=== PATIENT | female | born 1955 | race Caucasian/White ===

== ENCOUNTER 2018-07-09 10:15 | Inpatient (IN) | payer OTHER ==
--- NOTE | 2018-07-13 02:56 | HP ---
DATE OF PLANNED PROCEDURE: 07/13/2018 PROCEDURE TO BE PERFORMED: Robotic-assisted total laparoscopic hysterectomy with bilateral salpingectomy. PREOPERATIVE DIAGNOSIS: Postmenopausal bleeding and 8 cm pelvic mass. HISTORY OF PRESENT ILLNESS: Ms. Kritsie Somers is a 62-year-old G0 with history of menopause at approximately age 49, presented to my office in May with complaints of new-onset postmenopausal bleeding. The patient gives a history of bleeding that started 05/05 05/03 through 05/07 that she described as a period. The patient reports that the bleeding stopped spontaneously, but that she had a second week of bleeding at the end of April. The patient denied any pelvic pain, vaginal discharge or other associated findings. In her evaluation in the office, she was noted to have endometrial stripe of 19 mm and pelvic mass that appeared to be 7-9 cm. On examination, the cervical os was noted to be stenotic and an endometrial biopsy was not able to be completed in the office. The patient's workup for the pelvic mass including a CT of the abdomen and pelvis described a 7-cm mixed density pelvic mass most compatible with a dermoid. I counseled the patient on recommendation for an Oncology referral versus a dilation and curettage to rule out malignancy or hyperplasia of the endometrium. The patient declined Oncology referral and requested hysterectomy with bilateral salpingo-oophorectomy with me at [facility]. The patient and I had a long discussion of the risks and benefits of deferring Oncology referral. She is aware that if an endometrial malignancy diagnosed during or after the time of her procedure with me that future medical and/or surgical management will be required an outside facility. The patient also understands that there is not a REPORT ANALYST fire support specialist available during her procedure if malignancy was suspected at the time of surgery. Since her visit in May, patient declines any bleeding since. She remains asymptomatic to the pelvic mass and has no other associated symptoms. PAST MEDICAL HISTORY: Obesity, depression, hypertension. PAST SURGICAL HISTORY: Appendectomy and lap band. OBSTETRICAL HISTORY: 0. GYNECOLOGIC HISTORY: Menopause approximately at age 49. No history of abnormal Pap smear. Most recent Pap smear in 06/2015 negative for intraepithelial lesion or malignancy with negative HPV. CURRENT MEDICATIONS: Losartan 100 mg, hydrochlorothiazide 25 mg, sertraline 100 mg 2 tablets daily, aspirin, fish oil, calcium, multivitamin. SOCIAL HISTORY: . Does not use alcohol, tobacco or drugs. DRUG ALLERGIES: PENICILLIN and SULFA DRUGS. No latex allergies. FAMILY HISTORY: Significant for hypertension, diabetes, hypercholesterolemia, and skin cancer. REVIEW OF SYSTEMS: Negative except per HPI. PHYSICAL EXAMINATION: VITAL SIGNS: Height 5 feet 2 inches, weight 253 pounds, BMI 46, blood pressure 120/76, pulse 68, respiration rate 18, O2 saturation 98%. GENERAL: No acute distress. Alert and oriented. HEENT: Grossly normal. CONSTITUTIONAL: Obese. No acute distress. LUNGS: Nonlabored breathing. Clear to auscultation bilaterally. ABDOMEN: Obese, nontender, nondistended, no masses appreciated; however, exam limited by body habitus. GENITOURINARY: No external lesions, no vaginal lesions. Vaginal mucosa is moist. No cervical discharge, no cervical lesions. Uterus is not enlarged and nontender. Adnexa: No tenderness. Exam is limited by body habitus. Bladder and urethra appear normal. Rectum, no perianal skin lesions, fissures or masses noted. SKIN: No rashes. MENTAL STATUS: Appropriate mood and affect. ASSESSMENT AND PLAN: Ms. 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 The management options have been discussed with the patient in detail including repeat trial of in-office endometrial sampling dilation and curettage with hysteroscopy with IV sedation at the hospital. Referral to REPORT ANALYST Oncology for the above versus total laparoscopic hysterectomy and bilateral salpingo-oophorectomy has been encouraged, however the patient declines. The patient understands the risk and benefits of these different management options , she has decided to schedule a robotic-assisted total laparoscopic hysterectomy with bilateral salpingectomy secondary to the pelvic mass and postmenopausal bleeding. She understands the risks are to include, but not limited to bleeding, infection, damage to intraabdominal pelvic organs, possible need for blood or blood products, infection, bleeding, blood clots to the legs or lungs. Other risks that are inherent anesthesia, inability to fully diagnose and treat all conditions at the time of surgery and possible need for future medical and/or surgical management. Specifically, the patient understands but has declined referral to REPORT ANALYST Oncology for preoperative evaluation and for a second opinion and has also declined a diagnostic dilation and curettage, patient desires to proceed with the procedure as listed above. CLAYTOND
[2018-07-13] MEDS ORDERED: CeleCOXIB 100 MG CAP ONE (06:42)
[2018-07-13] MEDS ORDERED: Famotidine/PF 20 mg/2ml Vial ONE (06:42)
[2018-07-13] MEDS ORDERED: Gabapentin 300 MG CAP ONE (06:42)
[2018-07-13] MEDS ORDERED: Bupivacaine HCl 0.5%/Epinephrine 1:200,000/PF 30 ml Vial ONE (06:57)
[2018-07-13] MEDS ORDERED: Fentanyl 250 MCG/5 ML VIAL ONE (06:58)
[2018-07-13] MEDS ORDERED: Midazolam HCl 2 mg/2 ml Vial ONE (07:17)
[2018-07-13 07:29] LABS: Anion Gap 16 mmol/L (10-20); BUN (Urea Nitrogen) 20 mg/dL (9.8-20.1); Calc. Creatinine Clearance 0 mL/min (70-130); Calcium 8.9 mg/dL (7.8-10.44); Carbon Dioxide 24 mmol/L (23-31); Chloride 105 mmol/L (98-107); Estimated GFR-MDRD 79; Glucose 82 mg/dL (80-115); Potassium 4.6 mmol/L (3.5-5.1); Sodium 140 mmol/L (136-145)
[2018-07-13] MEDS ORDERED: Levofloxacin 500 mg/D5W 100 ml Premix Bag ONE ×2 (07:33→12:26)
[2018-07-13] MEDS ORDERED: Clindamycin/D5W 900 mg/50 ml Premix Bag ONE ×2 (07:33→12:26)
--- NOTE | 2018-07-13 09:44 | EKG ---
Test Reason : PREOP Blood Pressure : / mmHG Vent. Rate : 065 BPM Atrial Rate : 065 BPM P-R Int : 184 ms QRS Dur : 076 ms QT Int : 390 ms P-R-T Axes : 032 -02 003 degrees QTc Int : 405 ms Normal sinus rhythm Possible Inferior infarct , age undetermined (Q's in III and aVF) Abnormal ECG No previous ECGs available Confirmed by RASTA BOLES ([id number]) on 07/13/2018 9:43:32 AM Referred By: ALVIN Confirmed By:RASTA BOLES
[2018-07-13] MEDS ORDERED: Ondansetron HCl/PF 4 MG/2 ML Vial IVP PRN ×2 (10:11→14:55)
[2018-07-13] MEDS ORDERED: Promethazine HCl 25 MG/ML VIAL IM PRN ×2 (10:11→14:55)
[2018-07-13] MEDS ORDERED: Promethazine HCl 25 MG/ML VIAL SLOW IVP PRN (10:11)
--- NOTE | 2018-07-13 13:18 | PDOC.OP ---
Operative Note - Operative Note Operative Note: Immediate post op note Preop Dx: post menopausal bleeding, pelvic mass, dermoid suspected, morbid obesity Postop Dx: menopausal bleeding, pelvic mass, dermoid suspected, morbid obesity, pelvic adhesions Procedure: RA TLH w BSO, lysis of adhesions, cystotomy repair with cysto and interposition of omentum, minilaparotomy to retrieve pelvic mass, TREVER drain placement Surgeon: Lencho Assist: Guillermo Intraoperative consult: Giancarlo EBL: 75ml Complications: incidental cystotomy, repaired during the case Findings: 1. Morbid Obesity 2. Normal appearing uterus that sounds to 8cm 3. Adhesions of omentum to anterior abdominal wall, uterus and pelvic mass 4. Adhesions of pelvic mass/dermoid tumor to uterus, right pelvic sidewall and bladder 5. 2m cystotomy->repaired with no leak on backfill test 6. Normal liver edge Intraoperative 2nd dose of antibiotics ordered for obesity and increased operative time To 3rd floor for post operative care. Will plan for prophylactic Lovenox tomorrow 24hrs post op.
[2018-07-13] MEDS ORDERED: Simethicone Chewable 80 MG TAB PO PRN (14:55)
[2018-07-13] MEDS ORDERED: Meperidine HCl/PF 25 MG/ML VIAL SLOW IVP PRN (14:55)
[2018-07-13] MEDS ORDERED: Bisacodyl 10 MG SUPP PR PRN (14:55)
[2018-07-13] MEDS ORDERED: Acetaminophen/Codeine 30-300mg Tablet PO PRN ×2 (14:55)
[2018-07-13] MEDS ORDERED: Zolpidem Tartrate 5 MG TAB PO PRN (14:55)
[2018-07-13] MEDS ORDERED: diphenhydrAMINE 25 MG CAP PO PRN (14:55)
[2018-07-13 14:58] VITALS: BMI 45.8
[2018-07-13] MEDS: Sodium Chloride 0.9% 1,000 ML IV SCH ×2 (15:17→22:40)
[2018-07-13] MEDS ORDERED: Dexamethasone 20 MG/5 ML VIAL ONE (17:02)
[2018-07-13] MEDS ORDERED: PROPOFOL 200 MG/20 ML VIAL ONE (17:02)
[2018-07-13] MEDS ORDERED: Lidocaine 1% PF 5 ML VIAL ONE (17:02)
[2018-07-13] MEDS ORDERED: Ondansetron HCl/PF 4 MG/2 ML Vial ONE (17:02)
[2018-07-13] MEDS: Ketorolac Tromethamine 30 MG/ML VIAL IVP SCH (17:27)
--- NOTE | 2018-07-13 19:47 | OP ---
DATE OF PROCEDURE: 07/13/2018 PREOPERATIVE DIAGNOSES: 1. Postmenopausal bleeding and pelvic mass, declines referral to Oncology, desires surgical manageme nt with Benign Gynecology. 2. Obesity. POSTOPERATIVE DIAGNOSES: 1. Postmenopausal bleeding and pelvic mass, declines referral to Oncology, desires surgical manageme nt with Benign Gynecology. 2. Obesity. PROCEDURE PERFORMED: 1. Robotic-assisted total laparoscopic hysterectomy with bilateral salpingectomy, lysis of adhesions , incidental cystotomy with cystotomy repair, cystoscopy after cystotomy repair and interposition of omentum to cystotomy repair. 2. Placement of TREVER drain. 3. Mini laparotomy for retrieval of pelvic mass. SURGEON: Denver Musa D.O. CALL CENTER RN: Yudi Li M.D. INTRAOPERATIVE CONSULT: Urbano Mondragon M.D. COMPLICATIONS: Incidental cystotomy secondary to adhesive disease, repaired. ESTIMATED BLOOD LOSS: 75 mL FINDINGS: 1. Morbid obesity. 2. Normal-appearing uterus. 3. A 7-8 cm dermoid appearing left ovary noted to be torsed at the fallopian tube. 4. Adhesions of the omentum to the anterior abdominal wall, uterus and pelvic mass. 5. Adhesions of the pelvic mass to the uterus, right pelvic sidewall and bladder. 6. A 2 cm cystotomy repaired by Dr. Mondragon. 7. Surgical sites hemostatic. INDICATIONS: Ms. Kristie Somers is a 62-year-old female who presented to my office with postmenopausa l bleeding. We were unable to obtain an endometrial sample in the office due to stenosis of the cerv ix. She was also noted to have a pelvic mass on ultrasound, which on CT scan appeared to be a dermoi d appearing ovarian tumor. The patient was counseled on her surgical options and declined endometria l sampling in the OR with a D and C as well as referral to ROUTE DELIVERY CLERK Oncology. Understanding the risk and benefits of the procedure as well as alternative treatment options, the patient elected to undergo a total laparoscopic hysterectomy with bilateral salpingo-oophorectomy. PROCEDURE DETAILS: The patient was taken back to the OR with IV fluids running. Once she was in the OR, she was placed in dorsal supine position and general anesthesia was obtained. Once the patient was asleep, she was placed in low dorsal lithotomy position with her arms tucked at her side. SCDs w ere applied and were initiated and she received clindamycin and Levaquin in the OR for surgical proph ylaxis. The vagina and abdomen were prepped and draped in normal fashion for gynecologic laparoscopy . Khan catheter was placed to drain the bladder, which was attached to a Esequiel syringe. An operat neo speculum was placed in the vagina. Cervix was visualized, grasped with a single tooth tenaculum, serially dilated and sounded to approximately 8 cm. A LIU Dana manipulator was assembled with an 8 cm tip and a 3.5 cm cup and was placed into the uterus and the vagina in normal fashion. Once uterin e manipulator was assembled and placed, the surgeon's gloves were changed and attention was turned to the laparoscopic portion of the case. Beginning at the supraumbilical fold, a 12 mm skin incision w as made with the scalpel. A Veress needle was placed through this skin incision and the abdomen was insufflated without difficulty. After the abdomen was insufflated, a 12 mm trocar was placed through the skin incision followed by the laparoscope with the above findings noted. Immediately upon entry through the laparoscope, dense adhesions of the omentum were noted in the midline, anterior abdomina l wall obstructing view of the position of laparoscope. In similar fashion and under direct visualiz ation with good view of the abdominal wall, the left and right lower quadrant 8 mm robotic trocars we re placed as well as a right upper quadrant 11 mm assist trocar. At this time, the large laparoscope was set aside and a smaller 5 mm scope was brought into the room, so that the obstructing adhesions could be taken down through the smaller trocar ports. A 5 mm camera was placed through the robotic t rocar ports and with monopolar scissors, the omental adhesions were taken down off the anterior abdom inal wall restoring the view of the pelvis and pelvic anatomy. This portion of the procedure added a pproximately 20 additional minutes onto the case prior to the start of the hysterectomy. Once the om ental adhesions were taken down off the anterior abdominal wall, the robotic arms were docked and the procedure was continued from the robotic console. The procedure began with dissecting the omentum a way from the large pelvic mass. The omentum was noted to cover the uterus with filmy adhesions as we ll as the large ovarian cyst. Once the omentum was freed away from the planned surgical sites, atten tion was turned to the hysterectomy portion of the procedure. The large pelvic mass was noted to be torsing the left fallopian tube and was identified as a left ovarian pathology. The IP ligament was identified on the patient's left side, was elevated away from the pelvic sidewall, cauterized and tra nsected, freeing the ovary specimen away from the uterus and pelvic sidewall. The round ligament on the patient's left side was then cauterized and incised. It was then divided into anterior and poste rior leaves allowing the uterine artery to be skeletonized. After the uterine artery was skeletonize d on the patient's left side, the anterior leaf was dissected down towards the cervix and a bladder f lap was created from the patient's left side towards the midline. During this portion of the case, t he bladder was back filled with saline and noted to be well away from the area of dissection. The ut erine arteries on the patient's left side were cauterized and divided and attention was then turned t o the pelvic anatomy on the contralateral side. On the right side, the pelvic mass was noted to be a dhered towards the anterior aspect of the round ligament and abdominal wall and was abutting the urin anushka bladder as well. Filmy adhesions were taken down around the mass to free it away from the adhere nce within the pelvis. The utero-ovarian ligament on the patient's right side was cauterized and div ided allowing the uterus to fall away from the anatomy on the patient's right side. The round ligame nt on the patient's right side was easily identified and transected. The round ligament was divided into anterior and posterior leaves and dissected down towards the uterine arteries. Uterine arteries were identified on the patient's right side. They were cauterized and transected. The bladder flap dissection was completed from the patient's right side across from the midline and the bladder was d issected away from the planned colpotomy site. Next, the pelvic mass dissection was completed from t he right pelvic sidewall and was noted to be freely mobilized at this point. The right IP ligament w as then identified once the mass was removed. It was cauterized and transected. The right ovary and fallopian tube were then cauterized and freed from the pelvic sidewall. Once the right salpingo-oop horectomy was completed and the dermoid cyst had been freely mobilized, attention was turned to the c olpotomy portion of the procedure. The colpotomy was completed circumferentially without difficulty using monopolar scissors. The uterus and right ovary and tube were then retracted into the vagina fo r pneumoperitoneum. A laparoscopic specimen bag was then placed under direct visualization through t he curatorial assistant port and the left large ovarian specimen was placed into this bag and the bag was closed . The uterine specimen and right tube and ovary were removed from the vagina. An attempt was made t o pass the dermoid cyst through the vagina; however, it was noted to be too large and the decision wa s made at this time to retrieve the ovary through a mini laparotomy incision. During the closure of the vaginal cuff, a defect was noted within the bladder. It was felt that this defect was a tear in the bladder that happened as a result of the adhesions to the pelvic mass as the mass was noted to coronado ve affected the integrity of the tissue. Urology was immediately notified and arrived at the room ve ry quickly just as the vaginal cuff closure was complete. The vaginal cuff was closed with Stratafix suture in a running locked fashion in 2 layers. Vaginal cuff was noted to be hemostatic at the end of the closure. The surgical pedicles were irrigated and suctioned dry. Any small areas of bleeding were controlled with the fenestrated bipolar graspers along the pedicles in dissection areas. At th is point in the case, Dr. Mondragon presented for the cystotomy repair, cystoscopy examination of the u reteral orifices and interposition of omentum to the cystotomy repair. Please see his dictation for full details of this portion of the case. After his portion of the procedure was completed, a TREVER barrow in was placed through the right lower quadrant under direct visualization into the pelvis. The robot ic arms were undocked from the patient's bedside and attention was turned to the mini laparotomy to r etrieve the ovarian specimen. The supraumbilical incision was extended to approximately 3-4 cm at th e level of the fascia. Once this was done, the mass was immediately palpated underneath the incision and brought up through the incision in a self-contained bag. With the bag opened to the operating r oom, a small incision was made in the cyst and immediately characteristic dermoid appearing tissues w ere noted. The mass was decompressed with suction and with graspers grabbing large quantities of mat mae hair out of the mass. The mass was easily decompressed and pulled through the incision with the bag intact. After this was completed, the fascial layer and subcutaneous tissue was copiously irriga mae and dried. The fascia was reapproximated with Vicryl suture in a running fashion and the skin wa s closed with 4-0 Monocryl. At this point in the procedure, the cytogenetic technician noted that the TREVER drain h ad been inserted incorrectly. It was removed. A Veress needle was placed through the skin just abov e the supraumbilical port site and the abdomen was reinsufflated. A 5 mm camera was assembled and pl aced under direct view through the left lower quadrant port site. A 5 mm trocar was placed through t he right lower quadrant port site that previously had been used for the robotic arm. The TREVER drain wa s then fed correctly through this port site and laid down into the pelvis. All ports were then remov ed. All skin incisions were then cleaned, dried and reapproximated with Monocryl suture. The TREVER pushpa in was attached at the level of the skin in the right lower quadrant port site. The patient was riri betty, dried and taken to recovery room in good condition. I spoke with her and explained the cystotomy as well as the repair and the postoperative course of action that will be anticipated. Of note, the patient received a second dose of clindamycin and Levaquin to extended operating time and m orbid obesity.
[2018-07-14] MEDS: Ketorolac Tromethamine 30 MG/ML VIAL IVP SCH ×5 (00:15→19:43)
[2018-07-14 05:00] LABS: Hemoglobin 12.5 g/dL (12.0-16.0); Mean Corpuscular HGB CONC 32.2 g/dL (32.0-36.0); Mean Corpuscular Hemoglobin 30.4 pg (27.0-31.0); Mean Corpuscular Volume 94.5 fL (78.0-98.0); Mean Platelet Volume 7.4 fL (7.4-10.4); Platelet Count 184 thou/uL (130-400); RBC Distribution Width 12.4 % (11.5-14.5); Red Blood Cell (RBC) Count 4.12 mill/uL (4.20-5.40); White Blood Cell (WBC) Count 9.6 thou/uL (4.8-10.8)
[2018-07-14] MEDS: Sodium Chloride 0.9% 1,000 ML IV SCH ×2 (06:05→17:23)
--- NOTE | 2018-07-14 09:53 | PDOC.EVN ---
Event Note - Event Note Event Note: POD#1 S: minimal pain, no N/V, tolerated full liquid and clear diet, has not ambulated yet, passing gas O: Vital Signs (24 hours) Temp Pulse Resp BP BP Pulse Ox 07/14/18 08:06 98.6 F 76 20 108/54 L 96 07/14/18 04:20 97.5 F L 78 18 118/56 L 97 07/14/18 00:15 99.3 F 79 18 116/59 L 96 07/13/18 21:15 98.6 F 83 18 127/59 L 95 07/13/18 19:59 100.4 F H 80 18 144/70 H 95 07/13/18 18:25 79 18 143/68 H 95 07/13/18 17:15 97.9 F 77 18 148/70 H 96 07/13/18 16:15 78 20 139/78 96 07/13/18 15:45 76 20 138/67 96 07/13/18 15:15 77 20 141/65 H 96 07/13/18 14:45 98.8 F 76 20 144/67 H 96 Gen: NAD A and O Chest: nonlabored breathing Abd: obese, non distended, NTTP, incisions CDI X 4 Perineum: Scant old blood on pad, otherwise dry TREVER drain: min serosang fluid in drain Intake & Output - 24 hours 07/14/18 07/15/18 06:59 06:59 Intake Total 2617 Output Total 2052 Balance 564 Weight 251 lb Intake: Intake, IV Amount 1441 Oral 1176 Output: Drainage 28 abdomen rlq 28 Output, Lott 2024 Other: Voiding Method Indwelling Catheter Path pending Laboratory Results - last 24 hr 07/14/18 04:19 WBC 9.6 RBC 4.12 L Hgb 12.5 Hct 38.9 MCV 94.5 MCH 30.4 MCHC 32.2 RDW 12.4 Plt Count 184 MPV 7.4 A/P: POD #1 SP RATLH/BSO/NIKOLAI with cystotomy repair completed by urology. Doing well, on review of chart pt had a temperature last night of 100.4 (I wasn't notified), IS is at bedside and urine culture has been ordered now. Plan to advance orders today, ambulate in the hallway, advance to regular diet, will monitor overnight for fever x 1 yesterday evening and if afebrile through today will DC in the AM. We discussed the incidental cystotomy, the large pelvic mass and adhesions in detail today. Patient understands the plan of care, which includes lott catheter for approx 10d or until OK by urology for removal. Explained post lott removal imaging as well and risk of fistula formation. We also reviewed the indication for prophylactic Lovenox as she is high risk for VTE secondary to obesity, sedentary lifestyle and prolonged operative time yesterday, pt agrees to plan of care.
[2018-07-14] MEDS ORDERED: Enoxaparin Sodium 40 MG/0.4 ML SYRINGE SC SCH (13:30)
--- NOTE | 2018-07-14 18:35 | PRG ---
DATE OF SERVICE: 07/14/2018 SUBJECTIVE: The patient states she is feeling well. She has had very few bladder spasms. Her pain is well controlled. Her TREVER has hardly put out any fluid. She is not having any major discomfort fro m the catheter. She did have a small temperature overnight up to 100.3. Dr. Musa had elected to ke ep her in the hospital an additional day for monitoring. OBJECTIVE: VITAL SIGNS: Temperature 98.7, pulse 81, respirations 20, blood pressure 117/58, saturation 96% on r oom air. GENERAL: No apparent distress, communicative and alert. CARDIOVASCULAR: Regular rate and rhythm. ABDOMEN: Soft, nontender, nondistended, positive bowel sounds. Incision clean, dry, and intact. Ob oli abdomen. TREVER is serosanguineous with scant output. GENITOURINARY: Khan catheter in place and secured with clear yellow urine. EXTREMITIES: No clubbing, cyanosis or edema, although she does have significant obesity of the lower extremities. LABORATORY DATA: On laboratory evaluation, full set of labs in the [facility] system, which I reviewed . Of note, patient's hemoglobin is 12.5 with white count of 9.6, creatinine 0.75. ASSESSMENT AND PLAN: A 62-year-old white female with likely ovarian cancer status post TAHBSO with i ntraoperative bladder injury status post cystorrhaphy postop day #1. Most likely her temperature lópez vation was due to atelectasis as it is extremely early in the postoperative course for this to be a s urgical infection. Generally, prophylactic antibiotics are not necessary for patients with indwellin g catheter; however, if there is any concern, low dose Macrobid such as 50 mg once a day, can be used if desired for UTI prophylaxis for a catheter for the short duration that it is in. The patient is not really having any bladder spasms and does not want to on any scheduled antimuscarinic. I think s he should be discharged on 5 mg of oxybutynin t.i.d. p.r.n. bladder spasms, pain control can be provi ded by Dr. Musa. I will plan to see her back in the office in 10 days for a cystogram at which poin t I will probably take her catheter out as long as there is no leak. Her TREVER drain can probably be re moved tomorrow as so long as she does not put out an excessive amount of fluid. I have given her my card and contact information to assist in scheduling a followup appointment.
--- NOTE | 2018-07-14 23:31 | OP ---
DATE OF SURGERY: 07/13/2018 SERVICE: Urology. INTRAOPERATIVE CONSULTATION: Consult by Dr. Musa. CONSULTED: Dr. Urbano Mondragon. Reason For CONSULTATION: Intraoperative bladder injury. PROCEDURE PERFORMED: Robotic cystorrhaphy with cystoscopy and bilateral ureteral catheterizations. BRIEF HISTORY/REASON FOR CONSULT: Ms. Somers is a 62-year-old white female with an ovarian tumor. She had elected to undergo a robotic FARHAD/BSO by Dr. Musa. During the surgery, during removal of the ovarian mass, there was a tear that was noted in the bladder in which the Khan catheter could be se en intraperitoneally. Dr. Musa consulted me for assistance with the robotic bladder repair. DESCRIPTION OF PROCEDURE: After my arrival to the operating room, the patient had already been aslee p and the surgery have been underway as described above. Once Dr. Musa had reached a point where arabella chang could come off the robot. I sat down at the console and we began the portion of the bladder repair . Inspection of the bladder demonstrated an approximately 2 cm vertical incision near the posterior aspect of the bladder near the trigone. Inspection within the bladder demonstrated the Khan balloon along with the ureteral trigone, which appeared to be spared from the injury. Using a 3-0 Vicryl in a running fashion, the mucosa and submucosa were reapproximated in a running fashion. Subsequently, a 2-0 Vicryl was used to bury the initial layer along with closing the detrusor muscle for the stren gth layer in a running fashion. Upon completion, the bladder was leak tested with saline stained wit h methylene blue. There did appear to be a leak at the inferior aspect of the closure. Therefore, a xmovba-bz-lyuwy was placed there with a 2-0 Vicryl. At this point, there did not appear to be any o ther leakage after distending the bladder up to 300 mL with saline with methylene blue. Satisfied th at the bladder closure was watertight. I came off the console and scrubbed into perform a cystoscopy . A 22-Luxembourgish rigid cystoscope was introduced per urethra into the bladder and a full cystoscopy was performed without over distending the bladder. Both ureters appeared to be unharmed and away from t he suture line. Each ureteral orifice appeared to be effluxing urine. Given the patient set up on t he robotic table, there would be no ability to perform an intraoperative retrograde pyelogram, and C- arm would not be able to fit underneath the robotic bed, as the patient was positioned. As such, I d ecided just passed in a ureteral Pollack catheter and ensure that it would go up easily without diffi culty. The ureteral Pollack catheter was inserted in both ureters, which passed up easily. Dr. Moni logan inspected on the robot to see if the catheter was visible intraperitoneally and it was not. Amee flores fairly satisfied that there did not appear to be any ureteral injury. The Pollack catheter was rem hsruthi. During the cystorrhaphy, the catheter balloon was also ruptured and so we did look for any pie arcelia of latex and none were identified. Satisfied, the cystoscope was then removed and an 18-Luxembourgish F oley catheter with 10 mL of sterile water was placed into the patient's balloon into the bladder and this was left to gravity drainage. At this time, I went back to the robot console and elected to per form an ileal interposition. The vaginal cuff was identified and the suture line on the bladder was identified. Omentum was brought down and there was an abundant amount of omentum and a 2-0 Vicryl wa s used to pass through the omental tissue and then through the vaginal cuff. The omentum was interpo sition in between the vaginal cuff suture line and the bladder line to keep him well from e ach other. Additionally, then Tisseel spray was sprayed all over the suture line on the bladder as w ell as within the pelvis to try to minimize any bleeding risk. At this point, I felt my portion of t he procedure was concluded. Dr. Musa stated she still had to do a little bit more with removal of t he ovarian tumor and extraction. I told her I would like a drain placed and so she did place a #10 r ound TREVER drain as dictated in her operative reports. At this point, my portion of the surgery was con cluded. The remainder of the operation can be found in Dr. Musa's dictation of the operative report . COMPLICATIONS: From my standpoint, none. ESTIMATED BLOOD LOSS: Minimal. RETAINED TUBES AND DRAINS: An 18-Luxembourgish Khan catheter. SPECIMENS: None. DISPOSITION: Patient can be discharged after her hospitalization, I will perform a cystogram in 10 d ays at which point we will plan a void trial.
[2018-07-15] MEDS: Ketorolac Tromethamine 30 MG/ML VIAL IVP SCH (06:36)
[2018-07-15] MEDS: Sodium Chloride 0.9% 1,000 ML IV SCH ×2 (06:37→07:00)
--- NOTE | 2018-07-15 08:48 | PDOC.EVN ---
Event Note - Event Note Event Note: POD2 S:Doing well, ambulating, no bleeding, no concerns, emile diet, passing gas O: VS WNL NAD A and O Nonlabored breathing Abd obese, NTTP, incisions CDI x 4, TREVER with min fluid in it prior to removal, non distended Ext: SCDs on no cords Tameka dry Path benign Intake & Output - 24 hours 07/15/18 07/16/18 06:59 06:59 Intake Total 2350 Output Total 1400 Balance 950 Intake: Intake, IV Amount 1500 Oral 850 Output: Drainage 80 abdomen rlq 80 Output, Khan 1320 Other: Voiding Method Indwelling Catheter A/P: POD 2 sp RATLH/BSO/NIKOLAI, repair of intraop cystotomy doing well, no fever or chills, post op goals met, benign path reviewed. TREVER removed at bedside and incision clean and dry. Reviewed goals at home, ED warnings and Lovenox through POD 10, medications discussed with SE reviewed, sent to pharmacy. Has FU plan with Dr. Mondragon.
[2018-07-15 08:58] VITALS: BP 134/61; TEMP 99.3
[2018-07-15] MEDS ORDERED: Enoxaparin Sodium 40 MG/0.4 ML SYRINGE SC SCH ×2 (09:00→10:15)
--- NOTE | 2018-07-15 12:15 | DIS ---
DATE OF ADMISSION: 07/13/2018 DATE OF DISCHARGE: 07/15/2018 ADMISSION DIAGNOSES: Planned robotic assisted total laparoscopic hysterectomy with bilateral salping o-oophorectomy. DISCHARGE DIAGNOSES: Status post robotic assisted total laparoscopic hysterectomy with bilateral ashley pingo-oophorectomy. Lysis of adhesions and repair of incidental cystotomy. HOSPITAL COURSE: Ms. Kristie Somers underwent a robotic assist total laparoscopic hysterectomy with b ilateral salpingo-oophorectomy with lysis of adhesions and repair of incidental cystotomy on 07/13/20. The patient had a longer than average operative time due to morbid obesity, significant pelvic a dhesions and repair of an incidental cystotomy during the time of surgery. For this reason, she rece ived a second dose of antibiotics intraoperatively and was started on Lovenox prophylaxis on postoper ative day #1. During her operative time and postoperative time she also had mechanical DVT prophylax is with sequential compression devices. The patient's postoperative course was notable only for a te mperature of 100.4 on postoperative day 0 and approximately 1900. She had no other of abnormal eleva tions in her temperature or abnormal vital signs during her stay. By postoperative day #2, all of he r goals were met. She was discharged home after detailed review of her medications, their use and po tential side effects. The patient also at her pathology, which came back benign reviewed with her pr ior to discharge. Her TREVER drain was removed on hospital day 2 prior to discharge and she has a follow up plan for my office within the next 2 weeks as [address] as Dr[address] Mondragon for likely removal of her indwel ling Khan catheter. The patient's questions have been answered and she agrees with the discharge pl an.
[2018-07-18] MEDS ORDERED: Ibuprofen 800 MG TAB PO SCH (22:00)
== END 2018-07-15 11:24 | disposition home or self-care (01) | DRG 742 ==
LOC: SURG A 07-13 05:38 → 3SE 07-13 14:55
PROVIDERS: ADMIT Obstetrics & Gynecology; ATTEND Obstetrics & Gynecology
PROC: 0UT94ZZ Resection of Uterus, Percutaneous Endoscopic Approach (ICD-10-PCS; principal; 2018-07-13)
PROC: 0UT74ZZ Resection of Bilateral Fallopian Tubes, Percutaneous Endoscopic Approach (ICD-10-PCS; 2018-07-13)
PROC: 0TQB4ZZ Repair Bladder, Percutaneous Endoscopic Approach (ICD-10-PCS; 2018-07-13)
PROC: 8E0W4CZ Robotic Assisted Procedure of Trunk Region, Percutaneous Endoscopic Approach (ICD-10-PCS; 2018-07-13)
DX: N95.0 Postmenopausal bleeding (principal); N99.71 Accidental puncture and laceration of a genitourinary system organ or structure during a genitourinary system procedure; R19.00 Intra-abdominal and pelvic swelling, mass and lump, unspecified site; E66.9 Obesity, unspecified; F32.9 Major depressive disorder, single episode, unspecified; I10 Essential (primary) hypertension; Z88.0 Allergy status to penicillin; Z88.2 Allergy status to sulfonamides
CPT/HCPCS: 36415; 80048; 85027; 86304; 87086; 88112; 88305; 88307; 88311; 93005; 93010; C1769; J0670; J1100; J1650; J1885; J1956; J2001; J2250; J2405; J2704; J3010; J3490; Q9968; S0028

== ENCOUNTER 2018-07-09 12:48 | Outpatient (CLI) | payer OTHER, SELFPAY ==
[2018-07-09 19:00] LABS: #Eosinphils 0.1 thou/uL (0.0-0.7); #Lymphocytes 1.7 thou/uL (1.20-3.40); #Monocytes 0.5 thou/uL (0.11-0.59); #Neutrophils 5.1 thou/uL (1.40-6.50); %Basophils 0.6 % (0.0-1.0); %Eosinophils 1.4 % (0.0-10.0); %Lymphocytes 22.2 % (21.0-51.0); %Monocytes 7.2 % (0.0-10.0); %Neutrophils 68.6 % (42.0-75.0); Hemoglobin 14.4 g/dL (12.0-16.0); Mean Corpuscular HGB CONC 32.5 g/dL (32.0-36.0); Mean Corpuscular Hemoglobin 30.4 pg (27.0-31.0); Mean Corpuscular Volume 93.6 fL (78.0-98.0); Mean Platelet Volume 7.2 fL (7.4-10.4); Platelet Count 213 thou/uL (130-400); RBC Distribution Width 12.2 % (11.5-14.5); Red Blood Cell (RBC) Count 4.73 mill/uL (4.20-5.40); White Blood Cell (WBC) Count 7.5 thou/uL (4.8-10.8)
== END 2018-07-09 12:49 | disposition home or self-care (01) ==
LOC: LABBT 12:48
PROVIDERS: ATTEND Obstetrics & Gynecology
DX: Z01.812 Encounter for preprocedural laboratory examination (principal); N95.0 Postmenopausal bleeding; R19.00 Intra-abdominal and pelvic swelling, mass and lump, unspecified site; N83.202 Unspecified ovarian cyst, left side
CPT/HCPCS: 85025; 86850; 86900; 86901

== ENCOUNTER 2018-07-22 09:42 | Outpatient (CLI) | payer OTHER ==
--- NOTE | 2018-07-22 12:16 | RAD ---
CYSTOGRAM: History: 63-year-old female with history of intraoperative bladder injury. Fluoroscopy time: 0.6 minutes Dose: 32.639 Gycm2 FINDINGS: Body Former film shows no significant abnormality. Khan catheter was used to introduce approximately 300 c c of Iodinated contrast media within the bladder. There is no evidence for vesicular ureteral reflux. No evidence of extravasation. Post drainage film demonstrates complete drainage. IMPRESSION: Normal cystogram. No evidence of extravasation or reflux or other acute process. POS: EDITH
== END 2018-07-22 09:43 | disposition home or self-care (01) ==
LOC: RAD 09:42
PROVIDERS: ATTEND Urology
DX: N99.81 Other intraoperative complications of genitourinary system (principal)
CPT/HCPCS: 51600; 74430

== ENCOUNTER 2019-11-01 09:58 | Outpatient (CLI) | payer OTHER ==
--- NOTE | 2019-11-02 10:59 | MMO ---
Bilateral MAMMO Bilat Screen [facility]. CLINICAL HISTORY: Patient is 64 years old and is seen for screening. The patient has no family history of breast cancer. The patient has no personal history of cancer. VIEWS: The views performed were: bilateral craniocaudal; bilateral craniocaudal with tomosynthesis; bilateral mediolateral oblique; and bilateral mediolateral oblique with tomosynthesis. FILMS COMPARED: The present examination has been compared to prior imaging studies performed at [facility] on 11/09/2018, and at [facility] on 06/28/2014, 06/28/2015 and 06/30/2016. This study has been interpreted with the assistance of computer-aided detection. MAMMOGRAM FINDINGS: The breasts are almost entirely fat. There are stable benign appearing calcifications seen in both breasts. There are no suspicious masses, suspicious calcifications, or new areas of architectural distortion. IMPRESSION: THERE IS NO MAMMOGRAPHIC EVIDENCE OF MALIGNANCY. A ROUTINE FOLLOW-UP MAMMOGRAM IN 1 YEAR IS RECOMMENDED. THE RESULTS OF THIS EXAM WERE SENT TO THE PATIENT. ACR BI-RADS Category 2 - Benign finding MAMMOGRAPHY NOTE: 1. A negative mammogram report should not delay a biopsy if a dominant of clinically suspicious mass is present. 2. Approximately 10% to 15% of breast cancers are not detected by mammography. 3. Adenosis and dense breasts may obscure an underlying neoplasm. Reported by: CECILLE CHANG MD Electonically Signed: [id number]
== END 2019-11-01 09:59 | disposition home or self-care (01) ==
LOC: BICMAMMO 09:58
PROVIDERS: ATTEND Family Medicine
DX: Z12.31 Encounter for screening mammogram for malignant neoplasm of breast (principal)
CPT/HCPCS: 77063; 77067

== ENCOUNTER 2021-09-10 10:40 | Outpatient (CLI) | payer MEDICARE | END 2021-09-10 10:41 | disposition home or self-care (01) | LOC: BICMAMMO 10:40 | PROVIDERS: ATTEND Family Medicine | DX: Z12.31 Encounter for screening mammogram for malignant neoplasm of breast (principal); Z13.820 Encounter for screening for osteoporosis; N95.1 Menopausal and female climacteric states | CPT/HCPCS: 77063; 77067; 77080 ==

== ENCOUNTER 2021-09-23 10:40 | Outpatient (CLI) | payer MEDICARE ==
[2021-09-23 22:26] LABS: SARS-CoV-2 PCR by NAA Not Detected (NotDetected)
== END 2021-09-23 10:41 | disposition home or self-care (01) ==
LOC: LABBT 10:40
PROVIDERS: ATTEND Internal Medicine
DX: Z01.812 Encounter for preprocedural laboratory examination (principal); Z20.822 Contact with and (suspected) exposure to COVID-19
CPT/HCPCS: U0003; U0005

== ENCOUNTER 2021-09-25 05:57 | Day surgery (SDC) | payer MEDICARE ==
[2021-09-23 08:41] VITALS: BMI 51.2
[2021-09-25] MEDS ORDERED: Ketamine 50 MG/ML (10ML VIAL) ONE (08:01)
[2021-09-25] MEDS ORDERED: PROPOFOL 200 MG/20 ML VIAL ONE (08:32)
[2021-09-25] MEDS ORDERED: Lidocaine 1% PF 5 ML VIAL ONE (08:32)
[2021-09-25] MEDS ORDERED: Glycopyrrolate 0.2 MG/ML 5 ML SYRINGE ONE (08:32)
== END 2021-09-25 09:45 | disposition home or self-care (01) ==
LOC: SDC 05:57
PROVIDERS: ATTEND Internal Medicine
PROC: 0DBK8ZX Excision of Ascending Colon, Via Natural or Artificial Opening Endoscopic, Diagnostic (ICD-10-PCS; principal; 2021-09-25)
DX: Z12.11 Encounter for screening for malignant neoplasm of colon (principal); D12.2 Benign neoplasm of ascending colon; M19.90 Unspecified osteoarthritis, unspecified site; I10 Essential (primary) hypertension; E66.9 Obesity, unspecified; Z68.43 Body mass index [BMI] 50.0-59.9, adult; Z79.1 Long term (current) use of non-steroidal anti-inflammatories (NSAID); Z79.899 Other long term (current) drug therapy; Z88.0 Allergy status to penicillin; Z88.2 Allergy status to sulfonamides; Z98.84 Bariatric surgery status
CPT/HCPCS: 88305; J2704

== ENCOUNTER 2022-03-21 09:00 | Outpatient (CLI) | payer MEDICARE | END 2022-03-21 09:01 | disposition home or self-care (01) | LOC: BICRAD 09:00 | PROVIDERS: ATTEND Family Medicine | DX: R05.8 Other specified cough (principal) | CPT/HCPCS: 71046 ==

== ENCOUNTER 2023-05-28 10:29 | Outpatient (CLI) | payer MEDICARE | END 2023-05-28 10:30 | disposition home or self-care (01) | LOC: DTY/OP 10:29 | PROVIDERS: ATTEND Specialist | DX: E66.01 Morbid (severe) obesity due to excess calories (principal) | CPT/HCPCS: 97802 ==

== ENCOUNTER 2023-06-09 10:40 | Outpatient (CLI) | payer MEDICARE | END 2023-06-09 10:41 | disposition home or self-care (01) | LOC: BICMAMMO 10:40 | PROVIDERS: ATTEND Family Medicine | DX: Z12.31 Encounter for screening mammogram for malignant neoplasm of breast (principal) | CPT/HCPCS: 77063; 77067 ==

== ENCOUNTER 2023-07-20 09:32 | Outpatient (CLI) | payer MEDICARE ==
[2023-07-20 11:49] LABS: #Eosinphils 0.1 10x3/uL (0.0-0.5); #Monocytes 0.5 10x3/uL (0.0-1.1); #Neutrophils 4.1 10x3/uL (1.5-8.4); %Basophils 0.2 % (0.0-2.0); %Eosinophils 2.3 % (0.0-6.0); %Lymphocytes 22.4 % (18.0-47.0); %Monocytes 7.9 % (0.0-10.0); %Neutrophils 66.9 % (40.0-75.0); Hematocrit 42.4 % (34.9-44.5); Hemoglobin 14.2 g/dL (12.0-15.5); Mean Corpuscular HGB CONC 33.5 g/dL (32.0-36.0); Mean Corpuscular Hemoglobin 31.2 pg (27.0-33.0); Mean Corpuscular Volume 93.2 fl (81.6-98.3); Mean Platelet Volume 9.8 fl (7.4-10.4); Platelet Count 204 10x3/uL (150-450); RBC Distribution Width 12.9 % (11.5-14.5); Red Blood Cell (RBC) Count 4.55 10x6/uL (3.90-5.03); White Blood Cell (WBC) Count 6.1 10x3/uL (3.5-10.5)
[2023-07-20 12:02] LABS: Anion Gap 16 mmol/L (10-20); BUN (Urea Nitrogen) 16 mg/dL (9.8-20.1); Calc. Creatinine Clearance 0 mL/min (70-130); Calcium 8.9 mg/dL (7.8-10.44); Carbon Dioxide 27 mmol/L (23-31); Chloride 100 mmol/L (98-107); Estimated GFR 81; Glucose 97 mg/dL (80-115); Potassium 4.3 mmol/L (3.5-5.1); Sodium 139 mmol/L (136-145)
== END 2023-07-20 09:33 | disposition home or self-care (01) ==
LOC: LABBT 09:32
PROVIDERS: ATTEND Specialist
DX: Z01.818 Encounter for other preprocedural examination (principal); E66.01 Morbid (severe) obesity due to excess calories
CPT/HCPCS: 80048; 85025; 93005; 93010

== ENCOUNTER 2023-07-20 10:00 | Inpatient (IN) | payer MEDICARE ==
[2023-07-20 10:38] VITALS: BMI 47.5
[2023-08-04] MEDS ORDERED: Heparin 5,000 UNITS/ML VIAL ONE (11:02)
[2023-08-04] MEDS ORDERED: Acetaminophen 500 MG TAB ONE (11:02)
[2023-08-04] MEDS ORDERED: Ketorolac Tromethamine 30 MG/ML VIAL ONE (11:03)
[2023-08-04] MEDS ORDERED: EPINEPHrine 1 MG/ML VIAL ONE (14:15)
[2023-08-04] MEDS ORDERED: Bupivacaine 0.25% HCL 30 ML VIAL ONE (14:15)
[2023-08-04] MEDS ORDERED: SUGAMMADEX SODIUM 200 MG/2 ML VIAL ONE (15:15)
[2023-08-04] MEDS ORDERED: fentaNYL PF 100 MCG/2 ML SYRINGE ONE (15:16)
[2023-08-04] MEDS ORDERED: Sevoflurane 250 ML INH ANEST BOTTLE ONE (15:16)
[2023-08-04] MEDS ORDERED: HYDROmorphone 0.5 MG/0.5 ML SYRINGE ONE (15:16)
[2023-08-04] MEDS ORDERED: CEFAZOLIN 2 GM VIAL ONE (15:32)
[2023-08-04] MEDS ORDERED: Sodium Chloride 0.9% 100 ML ONE (15:33)
[2023-08-04] MEDS ORDERED: Midazolam HCl 2 mg/2 ml Vial ONE (15:36)
[2023-08-04] MEDS ORDERED: KETAMINE 100 MG/ML (5ML VIAL) ONE (15:36)
[2023-08-04] MEDS ORDERED: Famotidine/PF 20 mg/2ml Vial ONE (15:39)
[2023-08-04] MEDS ORDERED: Lidocaine 1% PF 5 ML VIAL ONE (15:43)
[2023-08-04] MEDS ORDERED: Rocuronium Bromide 10 MG/ML (10ML VIAL) ONE (15:43)
[2023-08-04] MEDS ORDERED: Ondansetron PF 4 MG/2 ML Vial ONE (15:43)
[2023-08-04] MEDS ORDERED: Dexamethasone 20 MG/5 ML VIAL ONE (15:43)
[2023-08-04] MEDS ORDERED: Metoclopramide HCl 10 MG/2 ML VIAL ONE (15:43)
[2023-08-04] MEDS ORDERED: PROPOFOL 200 MG/20 ML VIAL ONE (15:43)
[2023-08-04] MEDS ORDERED: Indocyanine Green 25 MG/10 ML VIAL ONE (16:34)
[2023-08-04] MEDS ORDERED: Hydrocodone-Acetamin 15 ML UDCUP PO PRN (18:56)
[2023-08-04] MEDS ORDERED: Ipratropium/Albuterol 3 ML NEB NEB PRN (18:56)
[2023-08-04] MEDS ORDERED: Morphine 2 MG/ML VIAL SLOW IVP PRN (18:56)
[2023-08-04] MEDS ORDERED: Dextrose 50% Abboject 50 ML SYRINGE SLOW IVP PRN (18:56)
[2023-08-04] MEDS ORDERED: Glucagon 1 MG/ML KIT IM PRN (18:56)
[2023-08-04] MEDS ORDERED: diphenhydrAMINE 50 MG/ML VIAL IVP PRN (18:56)
[2023-08-04] MEDS ORDERED: Dextrose 5% in Water 1,000 ML IV PRN (18:56)
[2023-08-04] MEDS ORDERED: Promethazine HCl 25 MG/ML VIAL IM PRN ×2 (18:56→18:58)
[2023-08-04] MEDS ORDERED: hydrALAZINE 20 MG/ML VIAL SLOW IVP PRN (18:56)
[2023-08-04] MEDS ORDERED: Morphine 4 MG/ML VIAL SLOW IVP PRN (18:56)
[2023-08-04] MEDS ORDERED: Ondansetron PF 4 MG/2 ML Vial IVP PRN (18:56)
[2023-08-04] MEDS ORDERED: Ondansetron HCl/PF 4 MG/2 ML Vial IVP PRN (18:58)
[2023-08-04] MEDS ORDERED: HYDROmorphone 2 MG/ML VIAL SLOW IVP PRN (18:58)
[2023-08-04] MEDS: D5 1/2 NS w/20 mEq KCL 1,000 ML IV SCH (22:23)
[2023-08-04] MEDS: Sertraline 100 MG TAB PO SCH (22:24)
[2023-08-05] MEDS: Ketorolac Tromethamine 30 MG/ML VIAL IVP SCH ×3 (00:40→12:35)
[2023-08-05] MEDS: D5 1/2 NS w/20 mEq KCL 1,000 ML IV SCH ×2 (05:56→10:41)
[2023-08-05 07:01] LABS: #Monocytes 0.7 thou/uL (0.11-0.59); #Neutrophils 8.9 thou/uL (1.40-6.50); %Lymphocytes 7.3 % (21.0-51.0); %Monocytes 6.6 % (0.0-10.0); %Neutrophils 85.7 % (42.0-75.0); Hemoglobin 12.8 g/dL (12.0-16.0); Mean Corpuscular HGB CONC 33.7 g/dL (32.0-36.0); Mean Corpuscular Hemoglobin 31.9 pg (27.0-31.0); Mean Corpuscular Volume 94.8 fl (78.0-98.0); Mean Platelet Volume 10.2 fL (7.4-10.4); Platelet Count 218 10x3/uL (130-400); RBC Distribution Width 13.3 % (11.5-14.5); Red Blood Cell (RBC) Count 4.01 mill/uL (4.20-5.40); White Blood Cell (WBC) Count 10.4 10x3/uL (4.8-10.8)
[2023-08-05 08:03] LABS: Anion Gap 15 mmol/L (10-20); BUN (Urea Nitrogen) 14 mg/dL (9.8-20.1); Calc. Creatinine Clearance 114 mL/min (70-130); Calcium 8.5 mg/dL (7.8-10.44); Carbon Dioxide 25 mmol/L (23-31); Chloride 100 mmol/L (98-107); Estimated GFR 74; Glucose 180 mg/dL (80-115); Potassium 4.2 mmol/L (3.5-5.1); Sodium 136 mmol/L (136-145)
[2023-08-05] MEDS: Sertraline 100 MG TAB PO SCH (08:51)
[2023-08-05] MEDS ORDERED: Pantoprazole 40 MG VIAL IVP SCH (09:00)
[2023-08-05 11:58] VITALS: BP 122/71; TEMP 98.4
== END 2023-08-05 14:30 | disposition home or self-care (01) | DRG 621 ==
LOC: SURG A 08-04 09:33 → SURG B 08-04 19:56
PROVIDERS: ADMIT Specialist; ATTEND Specialist
PROC: 0DB64Z3 Excision of Stomach, Percutaneous Endoscopic Approach, Vertical (ICD-10-PCS; principal; 2023-08-04)
PROC: 0DP64CZ Removal of Extraluminal Device from Stomach, Percutaneous Endoscopic Approach (ICD-10-PCS; 2023-08-04)
PROC: 8E0W4CZ Robotic Assisted Procedure of Trunk Region, Percutaneous Endoscopic Approach (ICD-10-PCS; 2023-08-04)
PROC: 3E033XZ Introduction of Vasopressor into Peripheral Vein, Percutaneous Approach (ICD-10-PCS; 2023-08-04)
DX: E66.01 Morbid (severe) obesity due to excess calories (principal); F32.A Depression, unspecified; I10 Essential (primary) hypertension; J30.9 Allergic rhinitis, unspecified; E78.1 Pure hyperglyceridemia; Z98.84 Bariatric surgery status; Z79.899 Other long term (current) drug therapy; Z90.49 Acquired absence of other specified parts of digestive tract; Z88.2 Allergy status to sulfonamides; Z88.0 Allergy status to penicillin; Z98.890 Other specified postprocedural states; Z68.42 Body mass index [BMI] 45.0-49.9, adult; Z90.710 Acquired absence of both cervix and uterus; Z80.8 Family history of malignant neoplasm of other organs or systems; Z82.49 Family history of ischemic heart disease and other diseases of the circulatory system; Z83.3 Family history of diabetes mellitus
CPT/HCPCS: 36415; 80048; 85025; 88307; 94760; C9113; J0171; J1100; J1170; J1644; J1650; J1885; J2250; J2405; J2704; J2765; J3480; J3490; S0020; S0028

== ENCOUNTER 2024-07-13 10:22 | Outpatient (CLI) | payer MEDICARE | END 2024-07-13 10:23 | disposition home or self-care (01) | LOC: BICMAMMO 10:22 | PROVIDERS: ATTEND Family Medicine | DX: Z12.31 Encounter for screening mammogram for malignant neoplasm of breast (principal); N95.1 Menopausal and female climacteric states | CPT/HCPCS: 77063; 77067; 77080 ==